=== PATIENT | male | born 1980 | race Caucasian/White ===

== ENCOUNTER 2019-01-13 09:58 | Emergency (ER) | payer BC, OTHER ==
[2019-01-13 10:05] VITALS: BP 128/79
[2019-01-13] MEDS ORDERED: AMOX/CLAV 875 MG/125 MG TABLET PO STA (11:54)
[2019-01-13] MEDS ORDERED: TETANUS/DIPHTHERIA/PERTUSSIS 0.5 ML SYRINGE IM ONE (11:54)
--- NOTE | 2019-01-13 11:57 | ED Physician Documentation ---
PD HPI ANIMAL BITE - Stated complaint Stated Complaint: R INDEX FINGER PX - Chief complaint Chief Complaint: Wound - History obtained from History obtained from: Patient - History of Present Illness Location of injury(ies): Right hand (Bitten twice by his cat Mon/ and redness R 2nd finger. Tetanus?) Review of Systems Constitutional: denies: Fever, Chills Cardiac: reports: Reviewed and negative Respiratory: reports: Reviewed and negative PD PAST MEDICAL HISTORY - Present Medications Home Medications: Ambulatory Orders Medication Instructions Recorded Confirmed Amox/Clav 875/125 [Augmentin] 1 each PO Q12H #20 tablet 01/13/19 Cholecalciferol [Vitamin D3] 5,000 unit 01/13/19 - Allergies Allergies/Adverse Reactions: Allergies Allergy/AdvReac Type Severity Reaction Status Date / Time No Known Drug Allergies Allergy Verified 01/13/19 10:04 PD ED PE NORMAL - Vitals Vital signs reviewed: Yes - General General: Alert and oriented X 3, No acute distress - Extremities Extremities: Other (Rednss dorsum of R 2nd finger at DIP without much limted ROM. Redness back to almost PIP) - Neuro Neuro: Alert and oriented X 3, Normal speech Results - Vitals Vitals: Vital Signs - 24 hr 01/13/19 10:03 Temperature 36.7 C Heart Rate 85 Respiratory 16 Rate Blood Pressure 128/79 O2 Saturation 100 Oxygen O2 Source Room air Departure - Departure Disposition: 01 Home, Self Care Clinical Impression: Infected cat bite of finger Qualifiers: Encounter type: initial encounter Qualified Code(s): S61.259A - Open bite of unspecified finger without damage to nail, initial encounter; L08.9 - Local infection of the skin and subcutaneous tissue, unspecified; W55.01XA - Bitten by cat, initial encounter Condition: Good Record reviewed to determine appropriate education?: Yes Instructions: ED Bite Animal General Prescriptions: Amox/Clav 875/125 [Augmentin] 1 each PO Q12H #20 tablet Comments: RETURN IF WORSE, FOR FEVER, INABILITY TO BEND, WORSE REDNESS OR PAIN
== END 2019-01-13 12:17 | disposition home or self-care (01) ==
LOC: ED 09:58
DX: S61.250A Open bite of right index finger without damage to nail, initial encounter (principal); L08.9 Local infection of the skin and subcutaneous tissue, unspecified; W55.01XA Bitten by cat, initial encounter; Z23 Encounter for immunization
CPT/HCPCS: 90471; 90715; 99283; A9270